=== PATIENT | female | born 1935 | race Caucasian/White ===

== ENCOUNTER 2019-09-13 14:58 | Observation (INO) | payer MEDICARE, BC, OTHER ==
--- NOTE | 2019-09-13 15:43 | EDM.PDOC ---
ED HPI GENERAL MEDICAL PROBLEM - General Source of Information: Reports: Family History Limitations: Reports: Altered Mental Status - History of Present Illness Onset: Gradual Onset Date: 08/16/19 Duration: Week(s): Location: Reports: Generalized <Mata العلي - Last Filed: 09/13/19 15:30> <Octavia Lopez Ximena - Last Filed: 09/13/19 16:36> - General Chief Complaint: Syncope Stated Complaint: [facility] Time Seen by Provider: 09/13/19 15:03 - History of Present Illness INITIAL COMMENTS - FREE TEXT/NARRATIVE: Kaitlin is an 84 YO female that presents to the ED for falling. She has fallen 3-4 times over the weekend with the most recent being at the [facility] this afternoon. Patient unable to answer more than 1-2 words and often confused. More confusion than her normal at today's visit. Daughter was present in room to give history. Kaitlin was being brought to [facility] for a coronavirus screen for admission into [facility] when she fell in the waiting room. Daughter says that the falls are unwitnessed with the exception of today's. Kaitlin was unconscious after the falls but is easily arousable. She has not been eating or drinking well for the past month. Primary care provider has stopped most of her medications due to Kaitlin refusing to take them. She complains of generalized pain. Daughter denies fevers, chills, nausea, shortness of breath, chest pain, possibility of head injury. (Mata العلي) - Related Data Allergies Allergy/AdvReac Type Severity Reaction Status Date / Time Sulfa (Sulfonamide Allergy Cannot Verified 01/12/15 08:15 Antibiotics) Remember Home Meds: Home Meds Donepezil HCl [Aricept] 10 mg PO BEDTIME 09/13/19 [History] Escitalopram Oxalate 0.5 tab PO DAILY 09/13/19 [History] Eyelid Cleanser Comb No.7 [Ocusoft Lid Scrub] 1 unit EYEBOTH DAILY 09/13/19 [History] Gabapentin [Neurontin] 100 mg PO TID 09/13/19 [History] Latanoprost/Pf [Latanoprost 0.005% Eye Drop] 1 drop EYEBOTH BEDTIME 07/13/20 [History] Sennosides/Docusate Sodium [Senna Plus 8.6-50 mg Tablet] 1 tab PO BID 09/13/19 [History] polyethylene glycoL 3350 [Polyethylene Glycol 3350] 17 gm PO ASDIRECTED 09/13/19 [History] traMADol [Ultram] 50 mg PO BID 09/13/19 [History] ED ROS GENERAL - Review of Systems Review Of Systems: Comprehensive ROS is negative, except as noted in HPI. <Mata العلي - Last Filed: 09/13/19 15:30> - Physical Exam Exam: See Below Exam Limited By: Altered Mental Status General Appearance: Lethargic, Cachetic, Other (Arousable when asking questions. ) Eye Exam: Bilateral Eye: EOMI, PERRL Ears: Normal External Exam Nose: Normal Inspection Throat/Mouth: Normal Inspection, Other (With exception of mildly dry oral mucosa.) Head Exam: Atraumatic, Normocephalic Respiratory/Chest: No Respiratory Distress, Lungs Clear, Normal Breath Sounds Cardiovascular: Regular Rate, Rhythm, No Gallop, No Murmur, No Rub GI/Abdominal: Normal Bowel Sounds, Soft, Non-Tender Skin Exam: Warm, Dry, Normal Color, Other (Poor skin turgor. ) <Mata العلي - Last Filed: 09/13/19 15:30> Course <Octavia Lopez - Last Filed: 09/13/19 16:36> - Vital Signs Last Recorded V/S: Last Vital Signs Temp 97.4 F 09/13/19 15:37 Pulse 50 L 09/13/19 15:37 Resp 18 09/13/19 15:37 BP 135/75 09/13/19 15:37 Pulse Ox 96 09/13/19 15:37 - Orders/Labs/Meds Labs: Laboratory Tests 09/13/19 Range/Units 15:45 COVID-19 (MICHAEL) Negative (NEGATIVE) - Re-Assessments/Exams Free Text/Narrative Re-Assessment/Exam: 09/13/19 15:54 I have read and reviewed the student's HPI and examined the patient and agree with TAMMY Guallpa-student. I did discuss the patient's clinical course with the daughter, and the daughter states that they do have placement at [facility], they just need to know if she is COVID positive or negative. I have ordered a test to check this out. No further labs and/or imaging will be done today regarding her syncopal episode. Daughter states that the patient is not on any sort of blood thinners as well. 09/13/19 16:14 COVID test is negative at today's visit. I will tell the daughter, and we will discharge the patient home so she can have admission into [facility]. 09/13/19 16:19 I did talk with the daughter, and we are going to be in contact with [facility] staff to see if they would come get the patient for admission to their facility. 09/13/19 16:31 Staff at [facility] state the they would take the patient for direct admission tomorrow, and were wondering about the possibility of having an observation admission overnight, I have contacted Dr. Espinoza about this, he is running the case past case management and will call me back. (Octavia Lopez) Departure <Mata العلي - Last Filed: 09/13/19 15:30> - Departure Time of Disposition: 16:14 Condition: Good - Discharge Information *PRESCRIPTION DRUG MONITORING PROGRAM REVIEWED*: No *COPY OF PRESCRIPTION DRUG MONITORING REPORT IN PATIENT WILLIAM: No <Octavia Lopez - Last Filed: 09/13/19 16:36> - Departure Disposition: Refer to Observation Clinical Impression: Failure to thrive in adult Syncopal episodes Qualifiers: Syncope type: unspecified Qualified Code(s): R55 - Syncope and collapse - Discharge Information Instructions: Syncope, [id number] Forms: ED Department Discharge Additional Instructions: You were evaluated in the ER for your syncopal episode while waiting to have COVID testing. Your COVID test performed at our facility today is NEGATIVE. You should be cleared for admission to the alf at this time. Please return to the ER at anytime if your symptoms change or worsen. Sepsis Event Note (ED) - Focused Exam Vital Signs: Vital Signs Temp Pulse Resp BP Pulse Ox 09/13/19 15:37 97.4 F 50 L 18 135/75 96
--- NOTE | 2019-09-13 16:41 | PCM.HP.2 ---
H&P History of Present Illness - General Date of Service: 09/13/19 Admit Problem/Dx: Admission Diagnosis/Problem Admission Diagnosis/Problem Failure to thrive in adult Source of Information: Family, Old Records, Provider, RN Notes Reviewed, Other History Limitations: Reports: Other (Baseline Dementia) - History of Present Illness Initial Comments - Free Text/Narative: This is an 84 yo elderly white female with past medical history of heart failure with unknown ef, dementia, peripheral neuropathy, constipation, chronic pain and depression who was brought from the clinic for syncopal episode. She carries a hx/o on and off syncope. She is in the process of being placed to [facility] per daughter due to declining overall health. She was seen at [facility] today for COVID screening when she became unconscious while standing up waiting in line. No falls. No report of obvious trauma. No seizure like activities. No loss of bladder or bowel incontinence. Patient is not on blood thinners. Per family, patient has not been eating or drinking well for a month now. Her primary care provider have weaned off some of her home medications. Patient endorses no fever or chills. No upper respiratory infection. No shortness of breath or chest pain. Per family, she has been accepted to [facility] for placement tomorrow. They have asked us to admit her for OBS. Patient was screen by adrián Majorfloor layer apprentice prior to admission. - Related Data Allergies/Adverse Reactions: Allergies Allergy/AdvReac Type Severity Reaction Status Date / Time Sulfa (Sulfonamide Allergy Cannot Verified 01/12/15 08:15 Antibiotics) Remember Home Medications: Home Meds Donepezil HCl [Aricept] 10 mg PO BEDTIME 09/13/19 [History] Escitalopram Oxalate 0.5 tab PO DAILY 09/13/19 [History] Eyelid Cleanser Comb No.7 [Ocusoft Lid Scrub] 1 unit EYEBOTH DAILY 09/13/19 [History] Gabapentin [Neurontin] 100 mg PO TID 09/13/19 [History] Latanoprost/Pf [Latanoprost 0.005% Eye Drop] 1 drop EYEBOTH BEDTIME 09/13/19 [History] Sennosides/Docusate Sodium [Senna Plus 8.6-50 mg Tablet] 1 tab PO BID 09/13/19 [History] polyethylene glycoL 3350 [Polyethylene Glycol 3350] 17 gm PO ASDIRECTED 09/13/19 [History] traMADol [Ultram] 50 mg PO BID 09/13/19 [History] Social & Family History - Tobacco Use Smoking Status *Q: Unknown Ever Smoked Second Hand Smoke Exposure: No - Caffeine Use Caffeine Use: Reports: None - Recreational Drug Use Recreational Drug Use: No H&P Review of Systems - Review of Systems: Review Of Systems: See Below Reason Not Obtained: Has advanced dementia with limited words Free Text/Narrative: very limited General: Denies: Fever, Chills Pulmonary: Denies: Shortness of Breath Cardiovascular: Denies: Chest Pain Gastrointestinal: Denies: Abdominal Pain, Nausea, Vomiting Musculoskeletal: Reports: Other (generalized pain) Psychiatric: Reports: Confusion Exam - Exam Exam: See Below - Vital Signs Vital Signs: Last Vital Signs Temp 36.3 C 09/13/19 15:37 Pulse 50 L 09/13/19 15:37 Resp 18 09/13/19 15:37 BP 135/75 09/13/19 15:37 Pulse Ox 96 09/13/19 15:37 - Exam General: Lethargic. No: Cooperative HEENT: Conjunctiva Clear, Hearing Intact, Nares Patent, Pupils Equal, Pupils Reactive. No: Mucosa Moist & [place] Neck: Supple, Trachea Midline Lungs: Clear to Auscultation, Normal Respiratory Effort, Decreased Breath Sounds Cardiovascular: Regular Rate, Regular Rhythm GI/Abdominal Exam: Normal Bowel Sounds, Soft, Non-Tender, No Organomegaly, No Distention, No Abnormal Bruit (Female) Exam: Deferred Rectal (Female) Exam: Deferred Back Exam: Normal Inspection, Decreased Range of Motion Extremities: Normal Inspection, Normal Range of Motion, Non-Tender Peripheral Pulses: 2+: Dorsalis Pedis (L), Dorsalis Pedis (R) Skin: Warm, Dry, Intact Neurological: Normal Gait, Other (limited neurological exam due to lethargy and lack of cooperation) Neuro Extensive - Mental Status: Other (awake). No: Oriented x3, Memory Intact Neuro Extensive - Motor, Sensory, Reflexes: Other (no appropriate due to altered mental status) Psychiatric: Other. No: Normal Affect, Suicidal Ideation, Hallucinations, Withdrawal Symptoms - Patient Data Lab Results Last 24 hrs: Laboratory Results - last 24 hr 09/13/19 Range/Units 15:45 COVID-19 (MICHAEL) Negative (NEGATIVE) Sepsis Event Note - Evaluation Sepsis Screening Result: No Definite Risk - Focused Exam Vital Signs: Vital Signs Temp Pulse Resp BP Pulse Ox 09/13/19 15:37 36.3 C 50 L 18 135/75 96 Date Exam was Performed: 09/13/19 Time Exam was Performed: 17:48 Problem List Initiated/Reviewed/Updated: Yes Orders Last 24hrs: Active Orders 24 hr Category Date Time Status Admission Status [Patient Status] [ADT] Routine ADT 09/13/19 16:36 Active Assessment/Plan Comment:: Assessment/Plan: This is an 84 yo elderly white female with past medical history of dementia, peripheral neuropathy, constipation, chronic pain and depression who was brought from the clinic for syncopal episode. Acute: Syncope. Acute on Chronic. Per family, this is chronic and on going for the past 2 weeks. She passed out while standing up waiting in line at the clinic. No fall per daughter. No report of seizures like activities. No stroke like symptoms. No head CT scan done in ED. Consider head CT scan, Carotid US and 2D echo. Discussed case with her DPOAPerla. She refused above recommendations. AMS. Carries a hx/o advanced dementia. She is lethargic on presentation to us. Hold sedatives or hypnotic medications. No respiratory symptoms. But will asks family if okay to check for UA. DPMARIAN, refused UA. prevention. Declining overall Health/Failure to Thrive. Has not been eating and drinking well. She has also refused taking some of her home medications. Plan: IV fluid for hydration. Discharge tomorrow at [facility]. Chronic: Peripheral Neuropathy, Constipation, Chronic Pain and Advanced Dementia Plan: Admit for OBS. Aspiration and fall precautions. Hold some home meds once verified. IV fluid for hydration x1 bag- DPOA okay with it. SW/CM for discharge planning. No PT/OT. NPO for now once alert she have have anything. Code status is DNR/DNI. Overall prognosis: guarded
[2019-09-13] MEDS ORDERED: Acetaminophen 325 MG Tab PO PRN (17:10)
[2019-09-13] MEDS ORDERED: Docusate Sodium 100 MG Cap PO PRN (17:10)
[2019-09-13] MEDS ORDERED: Ondansetron 4 MG/2 ML SDV IV PRN (17:10)
[2019-09-13] MEDS ORDERED: Ibuprofen 400 MG Tab PO PRN (17:10)
[2019-09-13] MEDS ORDERED: Ondansetron 4 MG Tab.DIS PO PRN (17:10)
[2019-09-13] MEDS ORDERED: Albuterol/Ipratropium 3.0-0.5 MG/3 ML Neb Soln NEB PRN (17:10)
[2019-09-13] MEDS: Sodium Chloride 0.9% 1,000 ML IV ONE ×2 (18:42→18:49)
[2019-09-13] MEDS ORDERED: Sodium Chloride 0.9% 1,000 ML ONE (18:46)
[2019-09-13] MEDS ORDERED: Donepezil 10 MG Tab PO SCH (21:00)
[2019-09-13] MEDS: traMADol 50 MG Tab PO SCH (21:55)
[2019-09-13] MEDS ORDERED: Latanoprost 0.005% Ophth Soln 2.5 ML Bottle EYEBOTH SCH (22:45)
--- NOTE | 2019-09-14 07:16 | PCM.DCSUM1 ---
Discharge Summary - Hospital Course Brief History: This is an 84 yo elderly white female with past medical history of heart failure with unknown ef, dementia, peripheral neuropathy, constipation, chronic pain and depression who was brought from the clinic for syncopal episode. Diagnosis: Stroke: No Modified Mariel Scale: No Symptoms at All Modified [place] Scale Score: 0 - Discharge Data Discharge Date: 09/14/19 Discharge Disposition: DC/[facility]fer to [facility] Condition: Good - Referral to Home Health Primary Care Physician: Blair Alcantar MD - Patient Summary/Data Operative Procedure(s) Performed: None Complications: None Consults: Consultations 09/13/19 17:10 Consult to Case Management/[employer] [CONS] Routine Consult to Spiritual Care [CONS] Routine Labs Pending at D/C: None Recommended Follow-up Testing/Procedures: None Planned Operative Procedure(s) after DC: none Hospital Course: Patient was primarily admitted for a one time syncopal episode that took placed at the clinic while being screened for COVID 19 in preparation for her NH placement. No stroke like or seizure like activities noted during this incident. She came back briefly after that. Her DPOA, Perla, refused any kind of work up. Perla agreed to IV fluids for hydration and plan for discharge to [facility]. She had no significant overnight or acute issues. Coby KOVACS called [facility] and they agreed to take her today. - Patient Instructions Diet: Usual Diet as Tolerated Activity: As Tolerated Driving: Do Not Drive Showering/Bathing: May Shower Notify Provider of: Fever, Increased Pain, Nausea and/or Vomiting - Discharge Plan *PRESCRIPTION DRUG MONITORING PROGRAM REVIEWED*: No *COPY OF PRESCRIPTION DRUG MONITORING REPORT IN PATIENT WILLIAM: No Home Medications: Home Meds Donepezil HCl [Aricept] 10 mg PO BEDTIME 09/13/19 [History] Escitalopram Oxalate 0.5 tab PO DAILY 09/13/19 [History] Eyelid Cleanser Comb No.7 [Ocusoft Lid Scrub] 1 unit EYEBOTH DAILY 09/13/19 [History] Gabapentin [Neurontin] 100 mg PO TID 09/13/19 [History] Latanoprost/Pf [Latanoprost 0.005% Eye Drop] 1 drop EYEBOTH BEDTIME 09/13/19 [History] Sennosides/Docusate Sodium [Senna Plus 8.6-50 mg Tablet] 1 tab PO BID 09/13/19 [History] polyethylene glycoL 3350 [Polyethylene Glycol 3350] 17 gm PO ASDIRECTED 09/13/19 [History] traMADol [Ultram] 50 mg PO BID 09/13/19 [History] Patient Handouts: Failure to Thrive, Adult, [id number], Syncope, Izdv-al-Heig Referrals: Blair Alcantar MD [Primary Care Provider] - (Please follow up with Dr. Alcantar on September 20 at 11:30. This appointment will be through telemed.) - Discharge Summary/Plan Comment DC Time >30 min.: No Discharge Summary/Plan Comment: Transfer to [facility] per family's request. - General Info Date of Service: 09/14/19 Admission Dx/Problem (Free Text: Admission Diagnosis/Problem Admission Diagnosis/Problem Failure to thrive in adult - Review of Systems General: Denies: Fever, Chills Pulmonary: Denies: Shortness of Breath, Pleuritic Chest Pain Gastrointestinal: Denies: Abdominal Pain, Nausea, Vomiting Genitourinary: Reports: No Symptoms Skin: Reports: No Symptoms Neurological: Reports: Confusion Psychiatric: Denies: Depression, Anxiety, Agitation Systems Review Comment: Generalized all over pain - Patient Data Vitals - Most Recent: Last Vital Signs Temp 36.3 C 09/13/19 15:37 Pulse 71 09/13/19 23:47 Resp 16 09/13/19 23:47 BP 152/96 H 09/13/19 23:47 Pulse Ox 95 09/13/19 23:47 Weight - Most Recent: 35.38 kg I&O - Last 24 hours: Intake & Output 09/13/19 09/14/19 09/14/19 22:59 06:59 14:59 Intake Total 518 Balance 518 Lab Results - Last 24 hrs: Laboratory Results - last 24 hr 09/13/19 Range/Units 15:45 COVID-19 (MICHAEL) Negative (NEGATIVE) Med Orders - Current: Current Medications Acetaminophen (Tylenol) 650 mg PO Q4H PRN PRN Reason: Pain (Mild 1-3)/fever Albuterol/Ipratropium (Duoneb 3.0-0.5 Mg/3 Ml) 3 ml NEB Q4H PRN PRN Reason: Shortness Of Breath/wheezing Citalopram Hydrobromide (Celexa) 5 mg PO DAILY [facility] Docusate Sodium (Colace) 100 mg PO BID PRN PRN Reason: Constipation Last Admin: 09/13/19 18:42 Dose: 100 mg Documented by: Donepezil HCl (Aricept) 10 mg PO BEDTIME [facility] Last Admin: 09/13/19 21:55 Dose: 10 mg Documented by: Sodium Chloride (Normal Saline) 1,000 mls @ 50 mls/hr IV ONETIME ONE Stop: 09/14/19 13:14 Last Admin: 09/13/19 18:49 Dose: Not Given Documented by: Ibuprofen (Motrin) 400 mg PO Q6H PRN PRN Reason: Pain (mild 1-3) Latanoprost (Xalatan 0.005% Ophth Soln) 0 ml EYEBOTH BEDTIME [facility] Last Admin: 09/13/19 23:36 Dose: 1 drop Documented by: Ondansetron HCl (Zofran Odt) 4 mg PO Q6H PRN PRN Reason: nausea, able to take PO Ondansetron HCl (Zofran) 4 mg IV Q6H PRN PRN Reason: Nausea/Vomiting Eyelid Cleanser Comb No.7 [Ocusoft Lid Scrub] 1 Unit 1 each EYEBOTH DAILY [facility] Polyethylene Glycol (Miralax) 17 gm PO Q72H [facility] Senna/Docusate Sodium (Senna Plus) 1 tab PO BID [facility] Last Admin: 09/13/19 21:55 Dose: 1 tab Documented by: Tramadol HCl (Ultram) 50 mg PO BID [facility] Last Admin: 09/13/19 21:55 Dose: 50 mg Documented by: Discontinued Medications Sodium Chloride (Normal Saline) Confirm Administered Dose 1,000 mls @ as directed .ROUTE .STK-MED ONE Stop: 09/13/19 18:47 Last Admin: 09/13/19 18:48 Dose: 50 mls/hr Documented by: - Exam General: Reports: Alert, No Acute Distress HEENT: Reports: Pupils Equal, Pupils Reactive. Denies: Mucous Membr. Moist/[place] Neck: Reports: Supple Lungs: Reports: Clear to Auscultation, Normal Respiratory Effort Cardiovascular: Reports: Regular Rate, Regular Rhythm GI/Abdominal Exam: Normal Bowel Sounds, Soft, Non-Tender, No Organomegaly (Female) Exam: Deferred Rectal (Female) Exam: Deferred Back Exam: Reports: Normal Inspection, Decreased Range of Motion Extremities: Normal Inspection, Normal Range of Motion, Non-Tender, No Pedal Edema Skin: Reports: Warm, Dry, Intact Neurological: Reports: No New Focal Deficit Psy/Mental Status: Reports: Alert, Normal Affect, Normal Mood
[2019-09-14] MEDS ORDERED: ESCITALOPRAM OXALATE PO SCH (09:00)
[2019-09-14] MEDS ORDERED: Polyethylene Glycol 3350 Powder 17 GM Packet PO SCH (09:00)
[2019-09-14] MEDS ORDERED: [UNRECOGNIZED DRUG - SUPPLY] EYEBOTH SCH (09:00)
[2019-09-14] MEDS ORDERED: Citalopram 10 MG Tab PO SCH (09:00)
[2019-09-14] MEDS: traMADol 50 MG Tab PO SCH (09:09)
== END 2019-09-14 13:00 ==
LOC: JD.ED 14:58 → JD.MS 16:36
PROVIDERS: ADMIT Internal Medicine; ATTEND Internal Medicine
DX: R55 Syncope and collapse (principal); R41.82 Altered mental status, unspecified; R62.7 Adult failure to thrive; I50.9 Heart failure, unspecified; G62.9 Polyneuropathy, unspecified; G89.29 Other chronic pain; F32.9 Major depressive disorder, single episode, unspecified; K59.00 Constipation, unspecified; F03.90 Unspecified dementia, unspecified severity, without behavioral disturbance, psychotic disturbance, mood disturbance, and anxiety; Z20.828 Contact with and (suspected) exposure to other viral communicable diseases; Z88.2 Allergy status to sulfonamides; Z79.899 Other long term (current) drug therapy; Z68.1 Body mass index [BMI] 19.9 or less, adult
CPT/HCPCS: 99285; A9270; G0378; J7040; U0002; 99217; 99219; 99283; J7030